=== PATIENT | male | born 1945 | race Caucasian/White ===

== ENCOUNTER 2021-09-17 04:07 | Emergency (ER) | payer OTHER, MEDICAID ==
[~2021-09-17] VITALS: Ht 167.6 cm; Wt 81.6 kg
[2021-09-17 04:15] VITALS: BP_SYST 153
[2021-09-17 04:46] LABS: MEAN CORPUSCULAR VOLUME 92 fL (79.0-98.0); RED CELL DISTRIBUTION WIDTH 14.2 % (9.0-15.0)
[2021-09-17 04:55] LABS: BASOPHILS % (AUTO) 0.5 % (0.0-2.0); EOSINOPHILS # (AUTO) 0.2 K/uL (0.0-0.4); EOSINOPHILS % (AUTO) 2.5 % (0.0-4.0); HEMATOCRIT 46.9 % (36-54); HEMOGLOBIN 16.2 g/dL (14.0-18.0); LYMPHOCYTES # (AUTO) 1.1 K/uL (1.0-5.5); LYMPHOCYTES % (AUTO) 12.3 % (20.5-51.5); MEAN CORPUSCULAR HEMOGLOBIN 32 pg (27-31); MEAN CORPUSCULAR HGB CONC 34 % (32-36); MONOCYTES # (AUTO) 0.9 K/uL (0.0-1.0); MONOCYTES % (AUTO) 10.5 % (1.7-9.3); NEUTROPHILS # (AUTO) 6.7 K/uL (1.8-7.7); NEUTROPHILS % (AUTO) 74.2 % (40.0-70.0); PLATELET COUNT (AUTO) 215 K/uL (130-430); RED BLOOD CELL COUNT(AUTO) 5.08 MIL/uL (4.2-6.2)
[2021-09-17 04:57] LABS: ANION GAP 9 (5-15); CALCIUM 9.1 mg/dL (8.4-11.0); CHLORIDE 102 mmol/L (98-107); CREATININE 1.06 mg/dL (0.55-1.30); GLUCOSE 145 mg/dL (70-99); POTASSIUM 4.3 mmol/L (3.5-5.1); SODIUM SERUM 138 mmol/L (136-145); UREA NITROGEN, BLOOD 23 mg/dL (8-21)
[2021-09-17 05:03] LABS: ALANINE AMINOTRANSFERASE 45 U/L (12-78); ALBUMIN 3.6 g/dL (3.4-4.8); ASPARTATE AMINOTRANSFERASE 25 U/L (10-37); TOTAL BILIRUBIN 0.5 mg/dL (0.0-1.0)
--- NOTE | 2021-09-17 05:09 | NUR ---
DR MAYFIELD AT PT BEDSIDE
--- NOTE | 2021-09-17 05:09 | NUR ---
PT BIBA WITH COMPLIAINT OF CONSTIPATION FOR THE PAST 2-3 DAYS. PTS DENIES ABDO PAIN AND DENIES NAUSEA. PT IN BED WITH BED LOWERED, LOCKED AND RAILS UP. WILL CONTINUE TO MONITOR
[2021-09-17] MEDS ORDERED: MOM PO (05:41)
--- NOTE | 2021-09-17 06:05 | NUR ---
Patient given written and verbal discharge instructions and verbalizes understanding. ER DR TRAN MUNIZ discussed with patient the results and treatment provided. Patient in stable condition. ID arm band removed. Rx of MAGNESIUM HYDROXIDE given. Patient educated on pain management and to follow up with PMD. Pain Scale . Opportunity for questions provided and answered. Medication side effect fact sheet provided.
[2021-09-17 06:07] VITALS: BP_SYST 148
== END 2021-09-17 06:05 | disposition home or self-care (01) ==
LOC: SED 04:07
DX: K59.00 Constipation, unspecified (principal); Z79.899 Other long term (current) drug therapy
CPT/HCPCS: 36415; 74018; 80053; 85025; 99284

== ENCOUNTER 2021-11-28 19:59 | Emergency (ER) | payer OTHER, MEDICAID ==
[~2021-11-28] VITALS: Ht 167.6 cm; Wt 79.4 kg
[~2021-11-28 19:59] MED LIST: MOM PO
[2021-11-28 20:46] VITALS: BP_SYST 117
--- NOTE | 2021-11-28 21:22 | NUR ---
Patient to ER bed H1 to gown for evaluation. Side rails up.
--- NOTE | 2021-11-28 21:30 | NUR ---
Patient presents to ED from home with c/o palpitations. Patient reports pain 0/10 at this time. Patient A/Ox4, VSS, ambulatory, resp even and unlabored. Patient states "I called the ambulance because my heart rate was 105 and thats not normal for me. I feel fine now, but I want the doctor to see me to make sure that I'm okay." Nad noted at this time.
--- NOTE | 2021-11-28 22:10 | NUR ---
Patient taken to CT via gurney accompanied by radiology.
--- NOTE | 2021-11-28 22:20 | NUR ---
Patient back from xrays via gurney accompanied by radiology.
[2021-11-28 22:26] LABS: BASOPHILS % (AUTO) 0.6 % (0.0-2.0); EOSINOPHILS # (AUTO) 0.2 K/uL (0.0-0.4); EOSINOPHILS % (AUTO) 3.4 % (0.0-4.0); HEMATOCRIT 44.6 % (36-54); LYMPHOCYTES % (AUTO) 15.5 % (20.5-51.5); MEAN CORPUSCULAR VOLUME 94 fL (79.0-98.0); MONOCYTES # (AUTO) 0.6 K/uL (0.0-1.0); NEUTROPHILS # (AUTO) 4.9 K/uL (1.8-7.7); NEUTROPHILS % (AUTO) 71.5 % (40.0-70.0); PLATELET COUNT (AUTO) 227 K/uL (130-430); RED BLOOD CELL COUNT(AUTO) 4.77 MIL/uL (4.2-6.2); WHITE BLOOD COUNT (AUTO) 6.8 K/uL (4.8-10.8)
--- NOTE | 2021-11-28 22:37 | NUR ---
ER MD Flood at bedside.
[2021-11-28 23:40] LABS: ANION GAP 7 (5-15); CALCIUM 8.8 mg/dL (8.4-11.0); CHLORIDE 102 mmol/L (98-107); CREATININE 1.28 mg/dL (0.55-1.30); GLUCOSE 153 mg/dL (70-99); POTASSIUM 3.8 mmol/L (3.5-5.1); UREA NITROGEN, BLOOD 24 mg/dL (8-21)
--- NOTE | 2021-11-28 23:48 | NUR ---
Pt.address, please set up a ride home: [address] [place], [place]
--- NOTE | 2021-11-28 23:50 | NUR ---
Call was placed for request for transportation for patient; ETA approx 3 hours.
--- NOTE | 2021-11-28 23:51 | NUR ---
patient resting comfortably in bed with side rails raised. Nad noted at this time.
[2021-11-28 23:55] LABS: ALANINE AMINOTRANSFERASE 39 U/L (12-78); ALBUMIN 3.5 g/dL (3.4-4.8); ASPARTATE AMINOTRANSFERASE 20 U/L (10-37); FREE T4 (FREE THYROXINE) 1.1 ng/dl (0.8-1.5); LIPASE 294 U/L (73-393); THYROID STIMULATING HORMONE 0.82 uIu/mL (0.36-3.74); TOTAL BILIRUBIN 0.6 mg/dL (0.0-1.0)
[2021-11-29 01:34] LABS: PHOSPHORUS 4.3 mg/dL (2.7-4.5)
--- NOTE | 2021-11-29 01:59 | NUR ---
Patient sleeping comfortably in bed with side rails raised. Nad noted at this time.
--- NOTE | 2021-11-29 05:45 | NUR ---
Second call placed for request for transportation at this time. ETA is approx 0674.
[2021-11-29 06:45] VITALS: BP_SYST 118
--- NOTE | 2021-11-29 06:45 | NUR ---
Patient given written and verbal discharge instructions and verbalizes understanding. ER MD discussed with patient the results and treatment provided. Patient in stable condition. ID arm band removed. Patient educated on pain management and to follow up with PMD. Pain Scale 0/10. Opportunity for questions provided and answered. Patient in stable condition upon discharge. Patient is accompanied by Lilliam Lindsay [employer], who is taking patient home at this time.
== END 2021-11-29 06:45 | disposition home or self-care (01) ==
LOC: SED 19:59
DX: R00.0 Tachycardia, unspecified (principal); E11.9 Type 2 diabetes mellitus without complications; I10 Essential (primary) hypertension; Z79.899 Other long term (current) drug therapy
CPT/HCPCS: 36415; 71045; 80053; 83690; 83735; 83880; 84100; 84439; 84443; 84484; 85025; 85379; 99284